=== PATIENT | female | born 1990 | race Caucasian/White ===

== ENCOUNTER 2017-12-20 21:21 | Emergency (ER) | payer MEDICAID ==
[2017-12-20] MEDS ORDERED: NORMAL SALINE 1000 ML 1,000 ML IV ONE (22:27)
[2017-12-20] MEDS ORDERED: DIPHENHYDRAMINE HCL 50 MG/ML VIAL IV ONE (22:27)
[2017-12-20] MEDS ORDERED: METOCLOPRAMIDE HCL INJ/PF 10 MG/2 ML SDV IV ONE (22:27)
--- NOTE | 2017-12-21 00:14 | ER Document Report ---
ED General - General Chief Complaint: Nausea/Vomiting Stated Complaint: VOMITING Time Seen by Provider: 12/21/17 00:00 Notes: Patient is a 27-year-old female at 15 weeks who presents with nausea and vomiting for the past 24 hours that has now mostly resolved. Patient states that she has been unable to tolerate oral intake all day today until just shortly after arriving to the emergency department. She denies any associated abdominal pain, diarrhea, fever or constitutional symptoms. No known sick contacts. No history of similar symptoms during this . She has not seen her [employer] SHARED SERVICES CONSULTANT or primary care doctor regarding today's concerns. She denies any vaginal bleeding or discharge. No dysuria. She states that she was worried about the possibility of dehydration and the status of the baby prompting her to come to the emergency department. TRAVEL OUTSIDE OF THE [place] IN LAST 30 DAYS: No - Related Data Allergies/Adverse Reactions: dexamethasone Allergy (Verified 12/20/17 21:24) Past Medical History - General Information source: Patient - Social History Smoking Status: Never Smoker Frequency of alcohol use: None Drug Abuse: None Lives with: Spouse/Significant other Family History: Reviewed & Not Pertinent Review of Systems - Review of Systems Notes: Constitutional: Negative for fever. HENT: Negative for sore throat. Eyes: Negative for visual changes. Cardiovascular: Negative for chest pain. Respiratory: Negative for shortness of breath. Gastrointestinal: Positive for vomiting Genitourinary: Negative for dysuria. Musculoskeletal: Negative for back pain. Skin: Negative for rash. Neurological: Negative for headaches, weakness or numbness. 10 point ROS negative except as marked above and in HPI. Physical Exam - Vital signs Vitals: Temp Pulse BP Pulse Ox 98.1 F 80 124/67 98 12/20/17 21:40 12/20/17 21:40 12/20/17 21:40 12/20/17 21:40 Interpretation: Normal Notes: PHYSICAL EXAMINATION: GENERAL: Well-appearing, well-nourished and in no acute distress. HEAD: Atraumatic, normocephalic. EYES: Pupils equal round and reactive to light, extraocular movements intact, sclera anicteric, conjunctiva are normal. ENT: nares patent, oropharynx clear without exudates. Moderately dry mucous membranes. NECK: Normal range of motion, supple without lymphadenopathy LUNGS: Breath sounds clear to auscultation bilaterally and equal. No wheezes rales or rhonchi. HEART: Regular rate and rhythm without murmurs ABDOMEN: Soft, gravid uterus, nontender, normoactive bowel sounds. No guarding , no rebound. No masses appreciated. EXTREMITIES: Normal range of motion, no pitting or edema. No cyanosis. NEUROLOGICAL: No focal neurological deficits. Moves all extremities spontaneously and on command. PSYCH: Normal mood, normal affect. SKIN: Warm, Dry, normal turgor, no rashes or lesions noted. Course - Re-evaluation Re-evalutation: 12/21/17 00:13 Patient presents with persistent vomiting during . Vitals at time of arrival unremarkable without tachycardia or hypotension. Laboratories reveal a normal creatinine and no evidence of significant dehydration. Patient was able to tolerate oral intake here in the emergency department. IV fluids were provided. Bedside ultrasound shows appropriate heart rate for gestational age with active movement. No vaginal bleeding or discharge. Based on abdominal exam, vitals and history I do not suspect an acute appendicitis, cholestasis of , acute cholecystitis, pancreatitis, or bowel obstruction. At this time will discharge with return precautions and follow-up recommendations. Verbal discharge instructions given a the bedside and opportunity for questions given. Medication warnings reviewed. Patient is in agreement with this plan and has verbalized understanding of return precautions and the need for primary care follow-up in the next 24-72 hours. - Vital Signs Vital signs: Temp Pulse Resp BP Pulse Ox 98.1 F 80 124/67 98 12/20/17 21:40 12/20/17 21:40 12/20/17 21:40 12/20/17 21:40 - Laboratory Result Diagrams: 12/21/17 00:25 Laboratory results interpreted by me: 12/21/17 00:25 Sodium 136.0 L BUN 6 L Discharge - Discharge Clinical Impression: Dehydration, Second trimester Nausea and vomiting Qualifiers: Vomiting type: unspecified Vomiting Intractability: non-intractable Qualified Code(s): R11.2 - Nausea with vomiting, unspecified Condition: Good Disposition: HOME, SELF-CARE Additional Instructions: You have been seen for vomiting during . You should continue to drink plenty of water and consider taking a solution such as Pedialyte if your having difficulty eating food. Please return if you become unable to drink any fluids for more than 12 hours, urinate less than twice a day, pass out, or have any other symptoms that are concerning to you.
[2017-12-21 01:06] LABS: ALANINE AMINOTRANSFERASE 22 U/L (9-52); ALBUMIN 3.9 g/dL (3.5-5.0); ALKALINE PHOSPHATASE 51 U/L (38-126); ANION GAP 8 (5-19); ASPARTATE AMINO TRANSFERASE 23 U/L (14-36); BILIRUBIN,DIRECT 0.1 mg/dL (0.0-0.4); BILIRUBIN,TOTAL 0.2 mg/dL (0.2-1.3); BLOOD UREA NITROGEN 6 mg/dL (7-20); CALCIUM 9.5 mg/dL (8.4-10.2); CARBON DIOXIDE 26 mmol/L (22-30); CHLORIDE 102 mmol/L (98-107); GLUCOSE 90 mg/dL (75-110); POTASSIUM 3.9 mmol/L (3.6-5.0); TOTAL PROTEIN 6.4 g/dL (6.3-8.2)
[2017-12-21 02:06] LABS: APPEARANCE,URINE CLEAR; BILIRUBIN,URINE NEGATIVE (NEGATIVE); COLOR,URINE COLORLESS; GLUCOSE, URINE NEGATIVE (NEGATIVE); KETONES,URINE NEGATIVE (NEGATIVE); LEUKOCYTE ESTERASE,URINE NEGATIVE (NEGATIVE); NITRITE,URINE NEGATIVE (NEGATIVE); PROTEIN,URINE NEGATIVE (NEGATIVE); URINE SPECIFIC GRAVITY 1.003; UROBILINOGEN,URINE NEGATIVE mg/dL (<2.0)
[2017-12-21 04:24] VITALS: BP 104/57
== END 2017-12-21 03:38 | disposition home or self-care (01) ==
LOC: ER 21:21
DX: O21.9 Vomiting of pregnancy, unspecified (principal); O99.282 Endocrine, nutritional and metabolic diseases complicating pregnancy, second trimester; E86.0 Dehydration; Z3A.15 15 weeks gestation of pregnancy; Z88.8 Allergy status to other drugs, medicaments and biological substances
CPT/HCPCS: 99283; 96361; 96374; 36415; 80053; 81001; J2765; J7030

== ENCOUNTER 2018-02-09 08:32 | Outpatient (CLI) | payer MEDICAID ==
--- NOTE | 2018-02-09 10:06 | RADIOLOGY REPORT (SQ) ---
EXAM DESCRIPTION: CHEST SINGLE VIEW COMPLETED DATE/TIME: 02/09/2018 9:51 am REASON FOR STUDY: iup 22.2 with h/o saltwater aspiration and c/o sob COMPARISON: None. EXAM PARAMETERS: NUMBER OF VIEWS: One view. TECHNIQUE: Single frontal radiographic view of the chest acquired. RADIATION DOSE: NA LIMITATIONS: None. FINDINGS: LUNGS AND PLEURA: No opacities, masses or pneumothorax. No pleural effusion. MEDIASTINUM AND HILAR STRUCTURES: No masses. Contour normal. HEART AND VASCULAR STRUCTURES: Heart normal in size. Normal vasculature. BONES: No acute findings. HARDWARE: None in the chest. OTHER: No other significant finding. IMPRESSION: NO ACUTE RADIOGRAPHIC FINDING IN THE CHEST. TECHNICAL DOCUMENTATION: JOB ID: [id number] [employer]- All Rights Reserved Reading location - IP/workstation name: [email or web address]
[2018-02-09 10:14] LABS: ABSOLUTE EOSINOPHILS # (AUTO) 0.1 10^3/uL (0.0-0.6); ABSOLUTE MONOCYTES (AUTO) 0.5 10^3/uL (0.1-1.4); ABSOLUTE NEUT (AUTO) 8.2 10^3/uL (1.7-8.2); BASOPHILS % (AUTO) 0.3 % (0-2); EOSINOPHILS % (AUTO) 0.5 % (0-6); HEMATOCRIT 36.9 % (36.0-47.0); HEMOGLOBIN 12.9 g/dL (12.0-15.5); LYMPHOCYTES % (AUTO) 18.6 % (13-45); MEAN CORPUSCULAR HEMOGLOBIN 28.9 pg (27.0-33.4); MEAN CORPUSCULAR HGB CONC 34.9 g/dL (32.0-36.0); MEAN CORPUSCULAR VOLUME 83 fl (80-97); MONOCYTES % (AUTO) 4.4 % (3-13); PLATELET COUNT 356 10^3/uL (150-450); RED BLOOD COUNT 4.46 10^6/uL (3.72-5.28); RED CELL DISTRIBUTION WIDTH 13.4 % (11.5-14.0); SEGMENTED NEUTROPHILS % (AUTO) 76.2 % (42-78); TOTAL CELLS COUNTED % (AUTO) 100 %; WHITE BLOOD COUNT 10.7 10^3/uL (4.0-10.5)
[2018-02-09 10:20] LABS: APPEARANCE,URINE CLEAR; BILIRUBIN,URINE NEGATIVE (NEGATIVE); COLOR,URINE STRAW; GLUCOSE, URINE NEGATIVE (NEGATIVE); KETONES,URINE NEGATIVE (NEGATIVE); LEUKOCYTE ESTERASE,URINE TRACE (NEGATIVE); NITRITE,URINE NEGATIVE (NEGATIVE); PROTEIN,URINE NEGATIVE (NEGATIVE); URINE SPECIFIC GRAVITY 1.002; UROBILINOGEN,URINE NEGATIVE mg/dL (<2.0)
[2018-02-09 10:41] LABS: URINE AMPHETAMINES SCREEN NEGATIVE; URINE BARBITURATES SCREEN NEGATIVE; URINE BENZODIAZEPINES SCREEN NEGATIVE; URINE COCAINE SCREEN NEGATIVE; URINE MARIJUANA (THC) SCREEN NEGATIVE; URINE METHADONE SCREEN NEGATIVE; URINE PHENCYCLIDINE SCREEN NEGATIVE
== END 2018-02-09 10:50 | disposition home or self-care (01) ==
LOC: LC 08:32
PROVIDERS: ATTEND Obstetrics & Gynecology
PROC: 4A1HXCZ Monitoring of Products of Conception, Cardiac Rate, External Approach (ICD-10-PCS; principal; 2018-02-09)
DX: O26.892 Other specified pregnancy related conditions, second trimester (principal); R10.2 Pelvic and perineal pain; R06.02 Shortness of breath; R05 Cough; Z3A.22 22 weeks gestation of pregnancy
CPT/HCPCS: 36415; 71045; 80307; 81001; 85025

== ENCOUNTER 2018-04-04 10:58 | Emergency (ER) | payer MEDICAID ==
[2018-04-04 11:10] VITALS: BP 120/68
--- NOTE | 2018-04-04 12:51 | ER Document Report ---
ED General - General Chief Complaint: Sore Throat Stated Complaint: POSSIBLE SORE THROAT Time Seen by Provider: 04/04/18 11:46 Mode of Arrival: Ambulatory Information source: Patient Notes: Patient presents emergency department complaint of sore throat that started this morning. Patient denies any fever, cough, congestion or any other symptoms. Patient reports that she has a at home and she just wanted to make sure that she does not have strep throat. TRAVEL OUTSIDE OF THE [place] IN LAST 30 DAYS: No - Related Data Allergies/Adverse Reactions: dexamethasone Allergy (Verified 04/04/18 10:59) Past Medical History - General Information source: Patient - Social History Smoking Status: Never Smoker Chew tobacco use (# tins/day): No Frequency of alcohol use: None Drug Abuse: None Family History: Reviewed & Not Pertinent Patient has suicidal ideation: No Patient has homicidal ideation: No Pulmonary Medical History: Reports: Hx Asthma Endocrine Medical History: Reports: Hx Diabetes Mellitus Type 2 - gestational Renal/ Medical History: Denies: Hx Peritoneal Dialysis Review of Systems - Review of Systems Constitutional: No symptoms reported EENT: See HPI Cardiovascular: No symptoms reported Respiratory: No symptoms reported Gastrointestinal: No symptoms reported Genitourinary: No symptoms reported Female Genitourinary: No symptoms reported Musculoskeletal: No symptoms reported Skin: No symptoms reported Hematologic/Lymphatic: No symptoms reported Neurological/Psychological: No symptoms reported Physical Exam - Vital signs Vitals: Temp Pulse Resp BP Pulse Ox 97.8 F 77 16 120/68 97 04/04/18 11:09 04/04/18 11:09 04/04/18 11:09 04/04/18 11:09 04/04/18 11:09 - Notes Notes: PHYSICAL EXAMINATION: GENERAL: Well-appearing, well-nourished and in no acute distress. HEAD: Atraumatic, normocephalic. EYES: Pupils equal round and reactive to light, extraocular movements intact, conjunctiva are normal. ENT: Nares patent, oropharynx clear without exudates. Moist mucous membranes. NECK: Normal range of motion, supple without lymphadenopathy LUNGS: Breath sounds clear to auscultation bilaterally and equal. No wheezes rales or rhonchi. HEART: Regular rate and rhythm without murmurs PSYCH: Normal mood, normal affect. SKIN: Warm, Dry, normal turgor, no rashes or lesions noted. Course - Re-evaluation Re-evalutation: Rapid strep is negative, patient will be discharged home in stable condition. Patient to take Tylenol or ibuprofen as needed for pain. Likely viral illness versus throat irritation as patient's reports that they did go to a bar the other night where there was a lot of smoke in the room that may have irritated her throat. - Vital Signs Vital signs: Temp Pulse Resp BP Pulse Ox 97.8 F 77 16 120/68 97 04/04/18 11:09 04/04/18 11:09 04/04/18 11:09 04/04/18 11:09 04/04/18 11:09 Discharge - Discharge Clinical Impression: Viral upper respiratory illness Condition: Stable Disposition: HOME, SELF-CARE Additional Instructions: Upper Respiratory Illness You have a viral infection of the respiratory passages -- a "cold." This common infection causes nasal congestion, drainage, and often sore throat and cough. It is caused by a virus and is highly contagious. The disease usually lasts a week or more, though the worst symptoms are usually over in 3 or 4 days. There is no "cure" for the viral infection -- it must run its course. If there is a complication, such as bacterial infection in the nose, sinuses, middle ear, or bronchial tubes, antibiotics may be required, but antibiotics won 't affect the virus. Drink plenty of fluids. A humidifier may help. An expectorant medication or decongestant may make you more comfortable. Use acetaminophen for fever or aches. See the doctor if fever persists over two or three days, if there is any significant worsening of your symptoms, or if you simply fail to improve as expected. Call your provider at [facility] if you are not feeling better in the next 1-2 days. Referrals: ZAIRE JOHNSON MD [Primary Care Provider] - Follow up as needed
== END 2018-04-04 13:00 | disposition home or self-care (01) ==
LOC: ER 10:58
DX: J06.9 Acute upper respiratory infection, unspecified (principal); B97.89 Other viral agents as the cause of diseases classified elsewhere; J02.9 Acute pharyngitis, unspecified; J45.909 Unspecified asthma, uncomplicated; Z88.8 Allergy status to other drugs, medicaments and biological substances
CPT/HCPCS: 87070; 87880; 99283

== ENCOUNTER 2018-06-09 11:01 | Outpatient (CLI) | payer MEDICAID ==
[2018-06-09 11:53] LABS: APPEARANCE,URINE CLEAR; BILIRUBIN,URINE NEGATIVE (NEGATIVE); COLOR,URINE STRAW; GLUCOSE, URINE NEGATIVE (NEGATIVE); KETONES,URINE NEGATIVE (NEGATIVE); LEUKOCYTE ESTERASE,URINE TRACE (NEGATIVE); NITRITE,URINE NEGATIVE (NEGATIVE); PROTEIN,URINE NEGATIVE (NEGATIVE); URINE SPECIFIC GRAVITY 1.004; UROBILINOGEN,URINE NEGATIVE mg/dL (<2.0)
[2018-06-09 11:55] LABS: HEMOGLOBIN 13.1 g/dL (12.0-15.5); MEAN CORPUSCULAR HEMOGLOBIN 28.5 pg (27.0-33.4); MEAN CORPUSCULAR HGB CONC 34.6 g/dL (32.0-36.0); MEAN CORPUSCULAR VOLUME 83 fl (80-97); PLATELET COUNT 260 10^3/uL (150-450); RED CELL DISTRIBUTION WIDTH 14.6 % (11.5-14.0); WHITE BLOOD COUNT 8.5 10^3/uL (4.0-10.5)
--- NOTE | 2018-06-09 12:00 | Non Stress Test Report ---
Non Stress Test Datetime Report Generated by CPN: 06/09/2018 12:00 DEMOGRAPHIC EGA NST: 39.3 INDICATION Indication for Study: Ordered by Provider VITAL SIGNS Temperature - NST: 97.7 Pulse - NST: 89 RESP - NST: 20 NBPSYS NST: 114 NBPDIA NST: 74 MONITORING Monitor Explained: Monitor Explained; Test Explained; Patient Verbalized Understanding Time on Monitor: 06/09/2018 11:15 Time off Monitor: 06/09/2018 11:48 NST Duration: 33 NST INTERVENTIONS NST Interventions: PO Hydration Physician Notified NST: K. Yu CNM BABY A: [id number] BABY A Movement : Present Contraction Frequency : irritability FHR Baseline : 135 Accelerations : 15X15 Variability : Moderate 6-25bpm NST Review: Meets Criteria for Reactive NST NST Review and Verified By : STEPHANE AdamsonT Results: Reactive NST REPORT Report Trigger: Send Report
[2018-06-09 12:07] LABS: URINE AMPHETAMINES SCREEN NEGATIVE; URINE BARBITURATES SCREEN NEGATIVE; URINE BENZODIAZEPINES SCREEN NEGATIVE; URINE COCAINE SCREEN NEGATIVE; URINE MARIJUANA (THC) SCREEN NEGATIVE; URINE METHADONE SCREEN NEGATIVE; URINE PHENCYCLIDINE SCREEN NEGATIVE
[2018-06-09 12:11] LABS: UR PRO/CREAT RATIO RESULT 0.6 mg/mg (0.0-0.2); URINE CREATININE 23.5 mg/dL (16-327); URINE PROTEIN 14.6 mg/dL (<12)
[2018-06-09 12:16] LABS: ALANINE AMINOTRANSFERASE 23 U/L (9-52); ALBUMIN 2.9 g/dL (3.5-5.0); ALKALINE PHOSPHATASE 153 U/L (38-126); ANION GAP 6 (5-19); ASPARTATE AMINO TRANSFERASE 23 U/L (14-36); BILIRUBIN,DIRECT 0.4 mg/dL (0.0-0.4); BILIRUBIN,TOTAL 0.5 mg/dL (0.2-1.3); BLOOD UREA NITROGEN 11 mg/dL (7-20); CALCIUM 9.1 mg/dL (8.4-10.2); CARBON DIOXIDE 25 mmol/L (22-30); CHLORIDE 105 mmol/L (98-107); GLUCOSE 109 mg/dL (75-110); POTASSIUM 4.2 mmol/L (3.6-5.0); SODIUM 135.9 mmol/L (137-145); TOTAL PROTEIN 5.6 g/dL (6.3-8.2); URIC ACID 6.4 mg/dL (2.5-6.2)
[2018-06-10 21:51] LABS: URINE CREATININE 26.7 mg/dL (16-327); URINE PROTEIN 14.2 mg/dL (<12)
[2018-06-10 21:54] LABS: 24 HOUR URINE PROTEIN RESULT 767 mg/day (42-225); 24 HR URINE CREAT RESULT 1.4 mg/day (0.8-2.0)
== END 2018-06-09 13:15 | disposition home or self-care (01) ==
LOC: LC 11:01
PROVIDERS: ATTEND Obstetrics & Gynecology Gynecology
PROC: 4A1HXCZ Monitoring of Products of Conception, Cardiac Rate, External Approach (ICD-10-PCS; principal; 2018-06-09)
DX: O16.3 Unspecified maternal hypertension, third trimester (principal); Z3A.39 39 weeks gestation of pregnancy
CPT/HCPCS: 36415; 59025; 80053; 80307; 81001; 82570; 84156; 84550; 85027

== ENCOUNTER 2018-06-18 06:09 | Inpatient (IN) | payer MEDICAID ==
[~2018-06-18 06:09] MED LIST: ZOLPIDEM TARTRATE 5 MG TABLET PO ONE
[2018-06-18] MEDS ORDERED: OXYTOCIN/NORMAL SALINE 20 UNIT/1,000 ML RTUINJ IV PRN (06:18)
[2018-06-18] MEDS ORDERED: RINGERS SOLUTION,LACTATED 1,000 ML IV PRN (06:18)
[2018-06-18] MEDS ORDERED: OXYTOCIN 10 UNIT/ML VIAL ONE (06:39)
[2018-06-18] MEDS ORDERED: OXYTOCIN/NORMAL SALINE 20 UNIT/1,000 ML RTUINJ ONE (06:39)
[2018-06-18] MEDS ORDERED: MISOPROSTOL 0.2 MG TABLET ONE (06:39)
[2018-06-18] MEDS ORDERED: LIDOCAINE 1% INJ-PF (10 MG/ML) 30 ML SDV ONE (06:39)
[2018-06-18 06:45] LABS: HEMATOCRIT 35.7 % (36.0-47.0); HEMOGLOBIN 12.8 g/dL (12.0-15.5); MEAN CORPUSCULAR HEMOGLOBIN 29.7 pg (27.0-33.4); MEAN CORPUSCULAR VOLUME 83 fl (80-97); PLATELET COUNT 245 10^3/uL (150-450); RED BLOOD COUNT 4.33 10^6/uL (3.72-5.28); RED CELL DISTRIBUTION WIDTH 14.5 % (11.5-14.0); WHITE BLOOD COUNT 8.6 10^3/uL (4.0-10.5)
[2018-06-18] MEDS ORDERED: RINGERS SOLUTION,LACTATED 300 ML IV ONE (06:45)
[2018-06-18 07:33] LABS: APPEARANCE,URINE CLEAR; BILIRUBIN,URINE NEGATIVE (NEGATIVE); COLOR,URINE YELLOW; GLUCOSE, URINE NEGATIVE (NEGATIVE); KETONES,URINE NEGATIVE (NEGATIVE); LEUKOCYTE ESTERASE,URINE NEGATIVE (NEGATIVE); NITRITE,URINE NEGATIVE (NEGATIVE); PROTEIN,URINE NEGATIVE (NEGATIVE); UROBILINOGEN,URINE NEGATIVE mg/dL (<2.0)
[2018-06-18 07:54] LABS: URINE AMPHETAMINES SCREEN NEGATIVE; URINE BARBITURATES SCREEN NEGATIVE; URINE BENZODIAZEPINES SCREEN NEGATIVE; URINE COCAINE SCREEN NEGATIVE; URINE MARIJUANA (THC) SCREEN NEGATIVE; URINE METHADONE SCREEN NEGATIVE; URINE PHENCYCLIDINE SCREEN NEGATIVE
[2018-06-18] MEDS ORDERED: MISOPROSTOL 0.1 MG TABLET ONE (07:56)
--- NOTE | 2018-06-18 09:17 | Admission Physical ---
Datetime Report Generated by CPN: 06/18/2018 09:17 CURRENT ADMISSION Chief Complaint: Scheduled Induction of Labor Indication for Induction: Gestational HTN; Maternal Diabetes Admit Impression : Induction of Labor Admit Plan: Initiate Labor Induction Protocol ALLERGIES Medication Allergies: Yes Medication Allergies: dexamethasone (06/18/2018) Latex: No Latex Allergies Food Allergies: N/A Environmental Allergies: N/A OBSTETRICAL HISTORY EDC: 06/13/2018 00:00 : 1 Para: 0 Term: 0 : 0 SAB: 0 IAB: 0 Ectopic: 0 Livin Cesareans: 0 VBACs: 0 Multiple Births: 0 Gestational Diabetes: Yes Rh Sensitization: No Incompetent Cervix: No HAMIDA: No Infertility: No ART Treatment: No Uterine Anomaly: No IUGR: No Hx Previous C/S: No Macrosomia: No Hx Loss/Stillborn: No Hx : No Placenta Previa/Abruption: No Depression/PP Depression: No PTL/PROM: No Post Hemorrhage: No Current Procedures: Ultrasound; NST Obstetrical History Comments: G1- current GDM SEE RECORDS Alcohol: No Marijuana : No Cocaine: No Other Illicit Drugs: No Cigarettes: Never Smoker. [id number] MEDICAL HISTORY Diabetes: Yes Diabetes Type: Gestational Diabetes Blood Transfusion: No Pulmonary Disease (Asthma, TB): Yes Breast Disease: No Hypertension: No Cone Machine Feeder Surgery: No Heart Disease: No Hosp/Surgery: No Autoimmune Disorder: No Anesthetic Complications: No Kidney Disease: No Abnormal Pap Smear: No Neuro/Epilepsy: No Psychiatric Disorders: No Other Medical Diseases: No Hepatitis/Liver Disease: No Significant Family History: No Varicosities/Phlebitis: No Trauma/Violence : No Thyroid Dysfunction: No Medical History Comments: asthma INFECTIOUS HISTORY Gonorrhea: No Genital Herpes: No Chlamydia: No Tuberculosis: No Syphilis: No Hepatitis: No HIV/AIDS Exposure: No Rash or Viral Illness: No HPV: No PHYSICAL EXAM General: Normal HEENT: Deferred Neurologic: Normal Thyroid: Normal Heart: Normal Lungs: Normal Breast: Deferred Back: Deferred Abdomen: Normal Genitourinary Exam: Deferred Extremities: Normal DTRs: Deferred Pelvic Type: Not Done Physical Exam Comments: Cervix exam by RN Vital Signs: Reviewed FETUS A EGA: 40.5 Admit Comment: GBS neg GDM A1 Asthma Rubella Non-immune FETUS B Monitoring: External US PLANS FOR LABOR AND DELIVERY Labor and Delivery: None Pain Management: Epidural Feeding Preference: Breast Benefit of Breast Feed Discussed: Yes Circumcision: N/A INFORMED CONSENT Assignment: Gail Yao MD Signature: with User ID: Kyrie : with User ID: Kyrie
[2018-06-18] MEDS ORDERED: DINOPROSTONE 10 MG VAGINAL INSERT.SR PV ONE (21:00)
[2018-06-18] MEDS ORDERED: DINOPROSTONE 10 MG VAGINAL INSERT.SR ONE (21:32)
[2018-06-18] MEDS ORDERED: ZOLPIDEM TARTRATE 5 MG TABLET ONE (23:40)
[2018-06-19] MEDS ORDERED: PENICILLIN G-K 5 MILLION UNIT VIAL ONE ×2 (05:56→10:16)
[2018-06-19] MEDS ORDERED: PENICILLIN G-K 5 MILLION UNIT VIAL IV ONE (06:00)
[2018-06-19] MEDS ORDERED: ONDANSETRON HCL INJ/PF 4 MG/2 ML SDV ONE (09:07)
[2018-06-19] MEDS ORDERED: ONDANSETRON HCL INJ/PF 4 MG/2 ML SDV IV ONE (09:10)
[2018-06-19] MEDS ORDERED: PROMETHAZINE HCL INJ 25 MG/1 ML VIAL ONE (09:40)
[2018-06-19] MEDS ORDERED: NALBUPHINE HCL INJ 10 MG/1 ML AMPULE ONE (09:40)
[2018-06-19] MEDS ORDERED: OXYTOCIN/NORMAL SALINE 20 UNIT/1,000 ML RTUINJ ONE (10:28)
[2018-06-19] MEDS ORDERED: NALBUPHINE HCL INJ 10 MG/1 ML AMPULE INJ ONE (10:30)
[2018-06-19] MEDS ORDERED: PROMETHAZINE HCL INJ 25 MG/1 ML VIAL IV ONE (10:30)
[2018-06-19] MEDS ORDERED: PHENYLEPHRINE HCL INJ/PF 10 MG/1 ML SDV ONE (13:12)
[2018-06-19] MEDS ORDERED: EPHEDRINE SULFATE INJ 50 MG/1 ML AMPULE ONE (13:13)
[2018-06-19] MEDS ORDERED: FENTANYL CITRATE INJ/PF 100 MCG/2 ML AMPUL ONE (13:13)
[2018-06-19] MEDS ORDERED: FENTANYL/BUPIVACAINE/NS/PF 300 MCG/150 ML RTUINJ EPI ONE (13:17)
[2018-06-19] MEDS ORDERED: BUPIVACAINE HCL 0.5 % INJ/PF 30 ML SDV ONE (13:18)
--- NOTE | 2018-06-19 17:08 | Warning Signs in Babies ---
VOD Warning Signs Datetime Report Generated by [facility]: 06/19/2018 17:07 VOD#608 -Warning Signs in Babies: Viewed with Parent(s)/Family (05/19/2018 12:19:Nivia Nowak RN)
--- NOTE | 2018-06-19 17:10 | Delivery Summary ---
Del Sum A-C Datetime Report Generated by CPN: 06/19/2018 17:09 DELIVERY PERSONNEL DELIVERY PERSONNEL: [id number] Delivery Doctor:: Nunu Hansen MD Labor and Delivery Nurse:: Nivia Nowak RNbusiness administrator Nurse:: HELEN Brantley Commercial Correspondent/EMPLOYMENT APPEALS EXAMINER: Angela Garcia, ST Commercial Correspondent/EMPLOYMENT APPEALS EXAMINER: Theresa Acuna CST Additional Personnel: : Lara Springer RN MATERNAL INFORMATION Delivery Anesthesia: Epidural Medications After Delivery: Pitocin Drip 20 Units/1000ml NSS Estimated Blood Loss (ml): 150 Maternal Complications: None LABOR SUMMARY EDC: 06/13/2018 00:00 No. Babies in Womb: 1 Attempted: No Labor Anesthesia: Epidural LABOR INFORMATION Reason for Induction: Maternal Diabetes Onset of Labor: 06/19/2018 13:30 Complete Dilatation: 06/19/2018 14:59 Cervical Ripening Agents: Cervidil Oxytocin: Induction Group B Beta Strep: negative Antibiotics # of Doses: 0 Steroids Given: None Reason Steroids Not Administered: Not Applicable MEMBRANES Membranes Rupture Method: Artificial Rupture of Membranes: 06/19/2018 07:29 Length of Rupture (hr): 7.67 Amniotic Fluid Color: Moderate Meconium Amniotic Fluid Amount: Small Amniotic Fluid Odor: Normal STAGES OF LABOR Stage 1 hr: 1 Stage 1 min: 29 Stage 2 hr: 0 Stage 2 min: 10 Stage 3 hr: 0 Stage 3 min: 4 Total Time in Labor hr: 1 Total Time in Labor min: 43 VAGINAL DELIVERY Episiotomy: None Laceration #1: Perineal Laceration Extension #1: Second Degree Laceration #2: Periurethral Laceration Repair: Yes Laceration Repair Note: 2nd degree lac repaired with running 2-0 vicyrl and 3-0 vicyrl. right periurethral lac repaired with interrupted 3-0 sutures. hemostasis noted, fundus firm. (Annotations: Data stored by N on behalf of user) Sponge Count Correct: Yes Sharps Count Correct: Yes CSECTION DELIVERY Primary Indication: N/A Secondary Indication: N/A CSection Incidence: N/A Labor: N/A Elective: N/A CSection Incision: N/A BABY A INFORMATION Delivery Date/Time: 06/19/2018 15:09 Method of Delivery: Vaginal Born in Route : No : N/A Forceps: N/A Vacuum Extraction: N/A Shoulder Dystocia : No PRESENTATION/POSITION BABY A Presentation: Cephalic Cephalic Presentation: Vertex Vertex Position: Right Occipital Anterior Breech Presentation: N/A PLACENTA INFORMATION BABY A Placenta Delivery Time : 06/19/2018 15:13 Placenta Method of Delivery: Spontaneous Placenta Status: Delivered SCORES BABY A Heart Rate 1 min: >100 bpm Resp Effort 1 min: Good Cry Reflex Irritability 1 min: Cough or Sneeze or Pulls Away Muscle Tone 1 min: Some Flexion of Extremities Color 1 min: Body [place], Extremities Blue Resuscitation Effort 1 min: N/A SCORE 1 MIN: 8 Heart Rate 5 min: >100 bpm Resp Effort 5 min: Good Cry Reflex Irritability 5 min: Cough or Sneeze or Pulls Away Muscle Tone 5 min: Active Motion Color 5 min: Body [place], Extremities Blue SCORE 5 MIN: 9 INFANT INFORMATION BABY A Gestational Age at Delivery: 40.6 Gestational Status: Full Term- 39- 40.6 Weeks Outcome : Liveborn Infant Condition : Stable Sex: Female IDENTIFICATION BABY A Infant Verification Date/Time: 06/19/2018 15:28 ID Band Number: [id number] Mother's Name Verified: Yes RN Verifying : Baidy RN/D Bellavance RN WEIGHT/LENGTH BABY A Birthweight (gm): 2930 Weight (lb): 6 Infant Weight (oz): 7 Length (in): 19.50 Length (cm): 49.53 CORD INFORMATION BABY A No. Cord Vessels: 3 Nuchal Cord : N/A Cord Blood Taken: Yes-For Eval (Mom's Blood Type - or O+) Suction: None ASSESSMENT BABY A Skin to Skin: Yes Care By: Luzma Springer, STEPHANE/ Dami Treviño, RN SIGNATURES : I was personally available for consultation and serving as supervising physician for the MLP.
[2018-06-19] MEDS ORDERED: BENZOCAINE/MENTHOL AEROSOL SPRAY 56 ML TOP PRN (18:37)
[2018-06-19] MEDS ORDERED: DIBUCAINE 1% OINTMENT 28 GM TP PRN (18:37)
[2018-06-19] MEDS ORDERED: MEASLES,MUMPS&RUBELLA VACC/PF 0.5 ML VIAL SUBCUT PRN (18:37)
[2018-06-19] MEDS ORDERED: DIPH/PERTUSS(ACELL)/TETANUS VAC/PF 0.5 ML SYR (>=10YO) IM PRN (18:37)
[2018-06-19] MEDS ORDERED: ACETAMINOPHEN WITH CODEINE #3 TABLET PO PRN ×2 (18:37)
[2018-06-19] MEDS ORDERED: ZOLPIDEM TARTRATE 5 MG TABLET PO PRN (18:37)
[2018-06-19] MEDS: IBUPROFEN 800 MG TABLET PO SCH (22:15)
[2018-06-20] MEDS: IBUPROFEN 800 MG TABLET PO SCH ×3 (06:40→21:55)
[2018-06-20 06:56] LABS: HEMATOCRIT 32.3 % (36.0-47.0); HEMOGLOBIN 11.1 g/dL (12.0-15.5); MEAN CORPUSCULAR HEMOGLOBIN 29.1 pg (27.0-33.4); MEAN CORPUSCULAR HGB CONC 34.5 g/dL (32.0-36.0); MEAN CORPUSCULAR VOLUME 84 fl (80-97); PLATELET COUNT 215 10^3/uL (150-450); RED BLOOD COUNT 3.83 10^6/uL (3.72-5.28); RED CELL DISTRIBUTION WIDTH 14.6 % (11.5-14.0); WHITE BLOOD COUNT 14.1 10^3/uL (4.0-10.5)
--- NOTE | 2018-06-20 10:34 | PDOC PROGRESS REPORT ---
Subjective-OB Progress Note for:: 06/20/18 Subjective: Doing well, no concerns. Bonding with baby. She reports light bleeding, reg diet and voiding without difficulty. Physical Exam (OB) Vital Signs: Temp Pulse Resp BP Pulse Ox 97.7 F 74 18 125/83 100 06/20/18 08:01 06/20/18 08:01 06/20/18 08:01 06/20/18 08:01 06/20/18 08:01 Intake & Output 06/19/18 06/20/18 06/21/18 06:59 06:59 06:59 Intake Total 46 Balance 46 - PIH/Pre-Eclampsia Clonus: Negative Headache: Absent Epigastric Pain: No Visual Changes: No - Lochia Lochia Amount: Scant < 10 ml Lochia Color: Rubra/Red - Abdomen Description: Soft, Round Hernia Present: No Fundal Description: Firm, Midline Fundal Height: u/u - u/2 Objective-Diagnostic Laboratory: 06/20/18 06:42 06/20/18 06/20/18 06:42 06:42 WBC 14.1 H RBC 3.83 Hgb 11.1 L Hct 32.3 L MCV 84 MCH 29.1 MCHC 34.5 RDW 14.6 H Plt Count 215 Blood Type A NEGATIVE Assessment and Plan(PN) - Assessment and Plan (1) Gestational diabetes mellitus, antepartum Qualifiers: Gestational diabetes mellitus control: diet-controlled Qualified Code(s): O24.410 - Gestational diabetes mellitus in , diet controlled Is this a current diagnosis for this admission?: Yes (2) Post term over 40 weeks Is this a current diagnosis for this admission?: Yes - Time Spent with Patient Time with patient: Less than 15 minutes Medications reviewed and adjusted accordingly: Yes - Disposition Anticipated Discharge: Home Within: within 24 hours
[2018-06-20] MEDS: SENNOSIDES/DOCUSATE 8.6-50 MG 1 EACH TABLET PO SCH (10:37)
[2018-06-20] MEDS: DOCUSATE SODIUM 100 MG CAPSULE PO SCH ×2 (10:37→17:31)
[2018-06-20] MEDS: FERROUS SULFATE 325 MG TABLET PO SCH ×2 (10:37→17:31)
[2018-06-20] MEDS: PRENATAL VITAMIN W DHA CAPSULE PO SCH (10:37)
[2018-06-20 20:25] VITALS: BP 131/89
[2018-06-21] MEDS: IBUPROFEN 800 MG TABLET PO SCH (05:50)
[2018-06-21] MEDS: PENICILLIN G POTASSIUM 2,500,000 UNIT in DEXTROSE 5%-WATER 50 ML IV SCH (07:53)
[2018-06-21] MEDS ORDERED: MEASLES,MUMPS&RUBELLA VACC/PF 0.5 ML VIAL SUBCUT PRN (10:00)
[2018-06-21] MEDS ORDERED: DIPH/PERTUSS(ACELL)/TETANUS VAC/PF 0.5 ML SYR (>=10YO) IM PRN (10:00)
--- NOTE | 2018-06-21 10:13 | PDOC DISCHARGE SUMMARY ---
Final Diagnosis Discharge Date: 06/21/18 - Final Diagnosis (1) Gestational diabetes mellitus, antepartum Is this a current diagnosis for this admission?: Yes (2) Post term over 40 weeks Is this a current diagnosis for this admission?: Yes (3) Normal course Is this a current diagnosis for this admission?: Yes Discharge Data - Discharge Medication Prescriptions: Ibuprofen [Motrin 800 mg Tablet] 800 mg PO Q8 PRN #60 tablet PRN Reason: Home Medications: Albuterol Sulfate [Albuterol Sulfate 2.5mg/3 mL] 2.5 mg IH ASDIR PRN 02/09/18 No122/Iron/Folic Acid [ Multi Tablet] 1 each PO DAILY 02/09/18 Ibuprofen [Motrin 800 mg Tablet] 800 mg PO Q8 PRN #60 tablet 06/21/18 Reason(s) for Admission: Onset of Labor Procedures: Ultrasound Intrapartum Procedure(s): Spontaneous Vaginal Delivery Complication(s): Laceration-Vaginal Laceration-Degree: 2nd - Diagnosis Test Laboratory: Temp Pulse Resp BP Pulse Ox 97.8 F 87 20 131/89 H 99 06/20/18 20:00 06/20/18 20:00 06/20/18 20:00 06/20/18 20:00 06/20/18 20:00 06/18/18 06/18/18 06/20/18 06:14 06:29 06:42 RBC 4.33 3.83 Hgb 12.8 11.1 L Hct 35.7 L 32.3 L Urine Opiates Screen NEGATIVE - Discharge information/Instructions Discharge Activity: Activity As Tolerated Discharge Diet: As Tolerated, Regular Disposition: HOME, SELF-CARE Follow up with: [facility] in: 4, Weeks
[2018-06-21] MEDS: SENNOSIDES/DOCUSATE 8.6-50 MG 1 EACH TABLET PO SCH (10:55)
[2018-06-21] MEDS: FERROUS SULFATE 325 MG TABLET PO SCH (10:55)
[2018-06-21] MEDS: PRENATAL VITAMIN W DHA CAPSULE PO SCH (10:55)
[2018-06-21] MEDS: DOCUSATE SODIUM 100 MG CAPSULE PO SCH (10:55)
== END 2018-06-21 13:34 | disposition home or self-care (01) | DRG 807 ==
LOC: LR 06:09 → 2S 06-19 17:55
PROVIDERS: ADMIT Obstetrics & Gynecology Gynecology; ATTEND Obstetrics & Gynecology Gynecology
PROC: 4A1HXCZ Monitoring of Products of Conception, Cardiac Rate, External Approach (ICD-10-PCS; 2018-06-18)
PROC: 10E0XZZ Delivery of Products of Conception, External Approach (ICD-10-PCS; principal; 2018-06-19)
PROC: 0KQM0ZZ Repair Perineum Muscle, Open Approach (ICD-10-PCS; 2018-06-19)
PROC: 0UQMXZZ Repair Vulva, External Approach (ICD-10-PCS; 2018-06-19)
PROC: 3E0P7VZ Introduction of Hormone into Female Reproductive, Via Natural or Artificial Opening (ICD-10-PCS; 2018-06-19)
PROC: 3E033VJ Introduction of Other Hormone into Peripheral Vein, Percutaneous Approach (ICD-10-PCS; 2018-06-19)
PROC: 10907ZC Drainage of Amniotic Fluid, Therapeutic from Products of Conception, Via Natural or Artificial Opening (ICD-10-PCS; 2018-06-19)
PROC: 3E0234Z Introduction of Serum, Toxoid and Vaccine into Muscle, Percutaneous Approach (ICD-10-PCS; 2018-06-21)
PROC: 3E0234Z Introduction of Serum, Toxoid and Vaccine into Muscle, Percutaneous Approach (ICD-10-PCS; 2018-06-21)
DX: O24.420 Gestational diabetes mellitus in childbirth, diet controlled (principal); Z37.0 Single live birth; O26.893 Other specified pregnancy related conditions, third trimester; O70.1 Second degree perineal laceration during delivery; J45.909 Unspecified asthma, uncomplicated; O99.513 Diseases of the respiratory system complicating pregnancy, third trimester; O71.82 Other specified trauma to perineum and vulva; Z67.11 Type A blood, Rh negative; Z23 Encounter for immunization; Z88.8 Allergy status to other drugs, medicaments and biological substances; Z3A.40 40 weeks gestation of pregnancy
CPT/HCPCS: 36415; 80307; 81005; 84112; 85027; 85461; 86592; 86850; 86900; 86901; 90471; 90686; 90707; 90715; G0008; J2300; J2370; J2405; J2540; J2550; J2590; J2790; J3010; J3490